=== PATIENT | female | born 1965 | race Hispanic/Latino ===

== ENCOUNTER 2025-02-21 20:07 | Emergency (ER) | payer OTHER ==
[~2025-02-21] VITALS: Ht 149.9 cm; Wt 83.9 kg
[2025-02-21] MEDS: KETOROLAC TROMETHAMINE 30 MG/ML VIAL IV STA (21:50)
[2025-02-21] MEDS: ONDANSETRON HCL INJ 2MG/ML 2ML 2 MG/ML VIAL IV STA (21:50)
[2025-02-21] MEDS: SODIUM CHLORIDE 0.9% 1000ML 1,000 ML IV ONE (21:51)
[2025-02-21] MEDS: ACETAMINOPHEN 325 MG TAB PO ONE (23:25)
[2025-02-21 23:27] VITALS: PULSE 89; RESP 18; TEMP 98.2
[2025-02-22 00:02] VITALS: BP 133/63; PULSE 89; RESP 18; TEMP 98.2; O2SAT 96
== END 2025-02-22 00:02 | disposition home or self-care (01) ==
LOC: FSED 20:51
DX: R42 Dizziness and giddiness (principal); E86.0 Dehydration; M54.50 Low back pain, unspecified; R51.9 Headache, unspecified; I10 Essential (primary) hypertension; E11.9 Type 2 diabetes mellitus without complications; E03.9 Hypothyroidism, unspecified; Z11.52 Encounter for screening for COVID-19
CPT/HCPCS: 0223U; 80053; 81003; 85025; 87400; 96372; 96374; 96375; 99283; J1885; J2405; J7030